=== PATIENT | female | born 1970 | race Caucasian/White ===

== ENCOUNTER 2024-08-12 13:07 | Emergency (ER) | payer MEDICAID ==
[~2024-08-12] VITALS: Ht 157.5 cm; Wt 122.7 kg
[2024-08-12] MEDS ORDERED: PANTOPRAZOLE SO40 MG PO (13:30)
[2024-08-12] MEDS ORDERED: OMEGA 3 FISH O1 EACH PO (13:31)
[2024-08-12] MEDS ORDERED: LEVOXYL0.112 MG PO (13:31)
[2024-08-12] MEDS ORDERED: MUCINEX 60600 MG/TA1 PO (13:31)
[2024-08-12] MEDS ORDERED: MAGNESIUM OXID200 MG PO (13:31)
[2024-08-12] MEDS ORDERED: VITAMIN C500 M5 PO (13:32)
[2024-08-12] MEDS ORDERED: PHARMASSURE ZIN50 MG PO (13:32)
[2024-08-12 14:06] LABS: SODIUM 141 mmol/L (136-145)
[2024-08-12 14:08] LABS: BASO # 0.04 K/mm3 (0.02-0.10); EOS # 0.16 K/mm3 (0.04-0.40); EOS % 1.9 % (1.0-5.0); GLUCOSE 125 mg/dL (65-105); HEMATOCRIT 48.4 % (37.0-47.0); HEMOGLOBIN 16.1 g/dL (12.5-16.0); LYMPH# 2.66 K/mm3 (1.50-4.00); MEAN CELL VOLUME 100 fl (78-100); MEAN CORPUSCULAR HEMOGLOBIN 33 pg (27-31); MEAN CORPUSCULAR HGB CONC 33 g/dL (33-37); NEU # 5.05 K/mm3 (1.40-6.50); PLATELET COUNT 271 K/mm3 (130-400); RED BLOOD COUNT 4.84 M/mm3 (4.10-5.30); RED CELL DISTRIBUTION WIDTH 14.1 % (11.5-14.5); TOTAL PROTEIN 7.2 g/dL (6.4-8.3); WHITE BLOOD COUNT 8.5 K/mm3 (4.8-10.8)
[2024-08-12 14:11] LABS: CALCIUM 9.5 mg/dL (8.3-10.5)
[2024-08-12 14:13] LABS: AST-SGOT 52 U/L (5-34); CARBON DIOXIDE 22 mmol/L (22-29)
[2024-08-12 14:14] LABS: TOTAL BILIRUBIN 0.5 mg/dL (0.2-1.2)
[2024-08-12 14:15] LABS: ALT/SGPT 66 U/L (0-55)
[2024-08-12 14:26] LABS: TROPONIN-I < 0.030 ng/mL (0.00-0.033)
[2024-08-12 15:05] VITALS: BP 142/82
== END 2024-08-12 14:55 | disposition home or self-care (01) ==
LOC: ED 13:07
PROVIDERS: Family Medicine
DX: F41.9 Anxiety disorder, unspecified (principal); Z86.16 Personal history of COVID-19; Z87.891 Personal history of nicotine dependence

== ENCOUNTER → 2024-11-03 | Outpatient (CLI) | payer MEDICARE, MEDICAID ==
[~2024-11-03] MED LIST: Iohexol 300 - 100 ML VIAL IV ONE; LEVOXYL0.112 MG PO; MAGNESIUM OXID200 MG PO; MUCINEX 60600 MG/TA1 PO; NS 100 ML IV SCH; OMEGA 3 FISH O1 EACH PO; PANTOPRAZOLE SO40 MG PO; PHARMASSURE ZIN50 MG PO; VITAMIN C500 M5 PO
== END ==
LOC: RAD 11:00
DX: K44.9 Diaphragmatic hernia without obstruction or gangrene (principal)
CPT/HCPCS: Q9967